=== PATIENT | female | born 1960 | race Caucasian/White ===

== ENCOUNTER 2019-03-08 05:12 | Day surgery (SDC) | payer OTHER ==
[~2019-03-08 05:12] MED LIST: ALENDRONATE SOD70 MG PO; FOLGARD TABLET1 EACH PO
[2019-03-08] MEDS ORDERED: PERCOCET 5-3251 EACH PO (09:56)
== END 2019-03-08 14:15 | disposition home or self-care (01) ==
LOC: CIR.AMB 05:12
DX: D35.1 Benign neoplasm of parathyroid gland (principal)